=== PATIENT | male | born 1995 | race Caucasian/White ===

== ENCOUNTER 2021-03-27 16:15 | Inpatient (IN) | payer SELFPAY ==
[~2021-03-27] VITALS: Ht 180.3 cm; Wt 131.6 kg
[2021-03-27 16:48] LABS: BASOPHILS # (AUTO) 0.1 10^3/uL (0.0-0.1); BASOPHILS % (AUTO) 1 % (0-10); EOSINOPHILS # (AUTO) 0.1 10^3/uL (0.0-0.3); EOSINOPHILS % (AUTO) 1 % (0-10); HEMATOCRIT 43 % (40-54); LYMPHOCYTES # (AUTO) 1.1 10^3/uL (1.0-4.0); LYMPHOCYTES % (AUTO) 11 % (12-44); MEAN CORPUSCULAR HEMOGLOBIN 30 pg (25-34); MEAN CORPUSCULAR HGB CONC 35 g/dL (32-36); MEAN CORPUSCULAR VOLUME 86 fL (80-99); MONOCYTES % (AUTO) 9 % (0-12); NEUTROPHILS # (AUTO) 8.3 10^3/uL (1.8-7.8); NEUTROPHILS % (AUTO) 78 % (42-75); PLATELET COUNT 244 10^3/uL (130-400); WHITE BLOOD COUNT 10.6 10^3/uL (4.3-11.0)
[2021-03-27 17:00] LABS: CHLORIDE 109 MMOL/L (98-107); POTASSIUM 3.3 MMOL/L (3.6-5.0); SODIUM 145 MMOL/L (135-145)
[2021-03-27 17:01] LABS: INR 1.2 (0.8-1.4); PROTHROMBIN TIME PATIENT 15.4 SEC (12.2-14.7)
[2021-03-27 17:02] LABS: CALCIUM 8.9 MG/DL (8.5-10.1)
[2021-03-27 17:03] LABS: GLUCOSE 129 MG/DL (70-105); TOTAL PROTEIN 6.9 GM/DL (6.4-8.2)
[2021-03-27 17:04] LABS: CARBON DIOXIDE 23 MMOL/L (21-32)
[2021-03-27 17:05] LABS: BILIRUBIN,TOTAL 0.8 MG/DL (0.1-1.0)
[2021-03-27 17:07] LABS: ALKALINE PHOSPHATASE 59 U/L (40-136); CREATININE SERUM 0.88 MG/DL (0.60-1.30); GFR ESTIMATED 104
[2021-03-27 17:08] LABS: BUN/CREATININE RATIO 10
[2021-03-27 17:09] LABS: SALICYLATE < 5.0 MG/DL (5.0-20.0)
[2021-03-27 17:10] LABS: ALANINE AMINOTRANSFERASE 96 U/L (0-55); MAGNESIUM 1.8 MG/DL (1.6-2.4)
[2021-03-27 17:11] LABS: CREATINE KINASE 89 U/L (30-200)
[2021-03-27] MEDS ORDERED: NS IV 1000 ML 1,000 ML IV SCH (17:15)
[2021-03-27] MEDS ORDERED: ACETAMINOPHEN 650 MG SUPP (TYLENOL) PR ONE (17:15)
--- NOTE | 2021-03-27 17:23 | Diagnostic Imaging Report ---
INDICATION: Tachycardia. COMPARISON: None available. TECHNIQUE: Single frontal radiograph of the chest dated March 27, 2021. FINDINGS: The cardiac silhouette is within normal limits in size. No significant pulmonary vascular congestion. Mild linear opacities are noted within the right midlung. The left lung is clear. No large-volume pleural effusion. No pneumothorax. No acute osseous abnormality. IMPRESSION: Mild right midlung opacities which may relate to focal infiltrate versus atelectasis. Trace pleural fluid within the minor fissure would be an additional consideration. Dictated by: Dictated on workstation # [id number]
[2021-03-27 17:26] LABS: BILIRUBIN,URINE NEGATIVE (NEGATIVE); CLARITY,URINE CLEAR; COLOR,URINE YELLOW; GLUCOSE, URINE (UA) NEGATIVE (NEGATIVE); KETONES,URINE NEGATIVE (NEGATIVE); LEUKOCYTE ESTERASE ,URINE NEGATIVE (NEGATIVE); NITRITE,URINE NEGATIVE (NEGATIVE); PH,URINE 6.5 (5-9); PROTEIN,URINE NEGATIVE (NEGATIVE)
--- NOTE | 2021-03-27 17:29 | Diagnostic Imaging Report ---
PROCEDURE: CT head and CT cervical spine without contrast. TECHNIQUE: Multiple contiguous axial images were obtained through the brain and cervical spine without the use of intravenous contrast. Sagittal and coronal reformations through the cervical spine were then performed. Auto Exposure Controls were utilized during the CT exam to meet ALARA standards for radiation dose reduction. INDICATION: Trauma, patient found unresponsive. COMPARISON: 08/19/2016 FINDINGS: No intracranial hemorrhage. No intracranial mass, mass effect, midline shift, herniation, hydrocephalus, or extra-axial fluid collection. The orbits are unremarkable. Mild mucosal thickening and fluid within scattered ethmoidal air cells. Mucosal thickening within the right sphenoid sinus. Retention cysts and mucosal thickening within the bilateral maxillary sinuses. The calvarium is intact. Straightening of the normal cervical lordosis without significant anterolisthesis or retrolisthesis. Alignment of the atlantooccipital joint is well maintained. Vertebral body heights and disc spaces are well-maintained. No acute fracture or dislocation. No destructive osseous process. No high-grade osseous central canal or neural foraminal stenosis. No apical pneumothorax. Paraspinal soft tissues are unremarkable. IMPRESSION: No acute intracranial abnormality with mild paranasal sinus disease present. No acute osseous abnormality within the cervical spine. Straightening of the normal cervical lordosis, which may simply be positional, though can also relate to muscle spasm. Dictated by: Dictated on workstation # [id number]
[2021-03-27 17:31] LABS: ACETAMINOPHEN < 10 UG/ML (10-30)
[2021-03-27 17:43] LABS: AMPHETAMINE SCREEN, URINE NEGATIVE (NEGATIVE); BARBITURATE SCREEN URINE NEGATIVE (NEGATIVE); BENZODIAZEPINES SCREEN URINE NEGATIVE (NEGATIVE); CANNABINOID SCREEN, URINE NEGATIVE (NEGATIVE); COCAINE SCREEN URINE NEGATIVE (NEGATIVE); METHADONE STAT NEGATIVE (NEGATIVE); METHAMPHETAMINE SCREEN URINE S NEGATIVE (NEGATIVE); OPIATE SCREEN URINE NEGATIVE (NEGATIVE); OXYCODONE STAT NEGATIVE (NEGATIVE); PROPOXYPHENE STAT NEGATIVE (NEGATIVE); TRICYCLIC ANTIDEPRESSANTS SCRE POSITIVE (NEGATIVE)
[2021-03-27] MEDS ORDERED: SUCCINYLCHOLINE INJ 100 MG/5 ML SYR/VIAL INJ ONE (17:45)
[2021-03-27] MEDS ORDERED: PROPOFOL INJECTION 50 ML IV SCH (17:45)
[2021-03-27] MEDS ORDERED: cefTRIAXone 1,000 MG in WATER (STERILE) FOR INJECTION 10 ML IV ONE ×4 (17:45)
[2021-03-27] MEDS ORDERED: fentaNYL INJ 100 MCG/2 ML AMP IVP ONE (17:45)
[2021-03-27] MEDS ORDERED: ETOMIDATE IV SOLN 20 MG/10 ML VIAL IV ONE (17:45)
[2021-03-27 17:47] LABS: ABG BASE EXCESS -0.4 MMOL/L (-2.5-2.5); ABG OXYGEN SATURATION 96 % (94-100); ABG PCO2 41 MMHG (35-45); ABG PH 7.39 (7.37-7.43); ABG PO2 74 MMHG (79-93)
[2021-03-27 17:48] LABS: AMORPHOUS SEDIMENT,UR FEW AMOR URATES /LPF; BACTERIA,URINE TRACE /HPF; RBC,URINE RARE /HPF; WBC,URINE 0-2 /HPF
[2021-03-27 17:48] LABS: ALLENS TEST POSITIVE; PATIENT TEMP 37.6; VENTILATOR NO
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
[2021-03-27] MEDS ORDERED: proPOfol 200 MG/20 ML (DIPRIVAN) VIAL IV ONE (19:23)
[2021-03-27] MEDS ORDERED: NS IV 1000 ML 1,000 ML ONE (19:27)
[2021-03-27] MEDS ORDERED: NS 250 ML (IVPB) BAG IV ONE (19:30)
[2021-03-27] MEDS ORDERED: IOHEXOL 350 MG/ML 150 ML (OMNIPAQUE 350) VIAL IV ONE (19:30)
[2021-03-27] MEDS ORDERED: PROPOFOL DRIP (ICU) 100 ML IV ONE (19:30)
[2021-03-27] MEDS ORDERED: HOLD METFORMIN - RECEIVED CONTRAST 20 ML VIAL IV SCH (19:30)
--- NOTE | 2021-03-27 19:48 | Diagnostic Imaging Report ---
PROCEDURE: CT angiography of the head and CT angiography of the neck with and without contrast. TECHNIQUE: Contiguous noncontrast images were obtained from the skull base through the vertex. After intravenous contrast administration, helical CT angiography of the neck was performed. Source data was reformatted into 3D MIP projections. Delayed post contrast acquisition was also obtained. Auto Exposure Controls were utilized during the CT exam to meet ALARA standards for radiation dose reduction. INDICATION: Patient is unresponsive, found down COMPARISON: Imaging from the same date FINDINGS: No midline shift, herniation, hydrocephalus, or suspicious extra-axial fluid collection. Evaluation for intracranial hemorrhage is limited secondary to presence of intravenous contrast. The orbits are unremarkable. Fluid and mucosal thickening within scattered ethmoidal air cells and the sphenoid sinuses. Mucous retention cysts and mucosal thickening within the bilateral maxillary sinuses. The mastoid air cells and middle ear cavities are clear. The calvarium is intact. Parapharyngeal fat is symmetric and well-maintained. Mildly enlarged bilateral cervical lymph nodes. The salivary glands are unremarkable. Muscles of mastication are unremarkable. Epiglottis and aryepiglottic folds are unremarkable. The thyroid gland is unremarkable. The airway is patent. No focal fluid collection. No apical pneumothorax. No acute osseous abnormality. A three-vessel aortic arch is present. Aberrant right subclavian artery is incidentally noted. The large arterial structures of the head and neck are otherwise unremarkable without evidence of occlusion, hemodynamically significant stenosis, dissection, aneurysm, or pseudoaneurysm. IMPRESSION: No acute intracranial abnormality. Large arterial structures of the head and neck are unremarkable. Mild bilateral cervical adenopathy, of uncertain etiology or significance. Mild paranasal sinus disease. Aberrant right subclavian artery. Dictated by: Dictated on workstation # [id number]
--- NOTE | 2021-03-27 19:55 | Diagnostic Imaging Report ---
INDICATION: Patient unresponsive, found down COMPARISON: Imaging from the same date TECHNIQUE: Postcontrast CT brain perfusion was performed. Postprocessing was performed using rapid stroke software. FINDINGS: The volume of parenchyma showing cerebral blood flow of less than 30% was 0 mL. The volume of parenchyma showing a T-Max greater than 6 seconds is 0 mL. Therefore, there is no mismatch volume. Normal venous outflow and arterial inflow is noted. IMPRESSION: No evidence of acute infarction or penumbra. Dictated by: Dictated on workstation # [id number]
[2021-03-27 20:04] VITALS: BP 117/88
--- NOTE | 2021-03-27 20:08 | Diagnostic Imaging Report ---
INDICATION: Tube positioning, endotracheal tube, intubation. COMPARISON: 03/27/2021. TECHNIQUE: Single radiograph of the chest dated March 27, 2021 at 1953 hours. FINDINGS: Interval placement of an endotracheal tube with the distal tip overlying the tracheal air column at the level of the clavicular heads. The cardiac silhouette is stable. No significant pulmonary vascular congestion. Minimal linear opacities within the right midlung are again identified. Low lung volumes. No large-volume pleural effusion. No pneumothorax. No acute osseous abnormality. IMPRESSION: 1. Interval placement of an endotracheal tube with the distal tip overlying the tracheal air column at the level of the clavicular heads. 2. Persistent and stable right midlung opacities without adverse change. Dictated by: Dictated on workstation # [id number]
--- NOTE | 2021-03-27 20:23 | Anesthesia-Procedure Note ---
Procedures/Interventions Procedure Start/Stop/Diagnosis Date of Procedure: Mar 27, 2021 Start Time: 19:30 Stop Time: 20:20 Intubation RSI: Yes 100% pre-Ox, [id number]: Yes Intubation Method: orotracheal MAC (size used 1-4): 2 Videoscope used: No Grade View: 2 Medications: Propofol (200), Succinylcholine (100) Mask Ventilation: positive Positive End Tide CO2: Yes Breath Sounds after Intubation: bilateral-equal ETT Securred @ (cm): 23 Intubated with ease: Yes Intubation Complications: no complications Post Intubation Xray-done: Yes Lumbar Puncture Discussed Risk,Benefits: Yes Patient Consents: Yes Position: Lying, L3-4, Left Sterile Technique: Yes Opening Pressure: 33 Fluid Color: clear Spinal Needle Used: 22g Gwendolyn 3 1/2 inch VIVIEN SINHA CRNA Mar 27, 2021 20:23
[2021-03-27 21:00] VITALS: BP 146/78
[2021-03-27] MEDS ORDERED: LACTATED RINGERS 1,000 ML IV ONE (21:04)
[2021-03-27] MEDS ORDERED: cefTRIAXone 2,000 MG VIAL ONE (21:06)
[2021-03-27] MEDS ORDERED: WATER (STERILE) FOR INJECTION 20 ML ONE (21:07)
[2021-03-27] MEDS ORDERED: ACETAMINOPHEN 650 MG SUPP (TYLENOL) PR PRN (21:15)
[2021-03-27 21:22] LABS: CSF GLUCOSE 75 MG/DL (50-80)
[2021-03-27] MEDS: cefTRIAXone 2,000 MG/SWFI 20 ML IV PUSH IV SCH ×2 (21:22)
[2021-03-27] MEDS: LACTATED RINGERS 1,000 ML IV SCH (21:22)
[2021-03-27 21:28] LABS: CSF TOTAL PROTEIN 27 MG/DL (15-40)
--- NOTE | 2021-03-27 21:37 | Progress Note ---
Standard Progress Note Progress Notes/Assess & Plan Date Seen by a Provider: Mar 27, 2021 Time Seen by a Provider: 21:34 Progress/Assessment & Plan patient found in van of which he was living unresponsive, brought into ED, intubated, unclear etiology, was febrile, wbc appears normal had pus coming out of ear. Patient was intubated, had LP and strarted on ceftriaxone, wbc normal on labs, paitent drug tox negative except tricyclic antidepressants, patient had high opening pressures Heart rate was 149 on arrival but currently in icu it is 101, rr 16, sedated, sats 100 percent, and bp sbp 140 appears stable patient on vent Ct head appears normal along with c spine appears am labs ordered, continue abx, continue ivf continue full vent support awaiting cultures Focused Exam Lactate Level 03/27/21 16:35: Lactic Acid Level 1.59 DAGO SANTO MD Mar 27, 2021 21:37
--- NOTE | 2021-03-27 21:51 | Tele-ICU Consult ---
Progress Note Laboratory Tests 03/27/21 16:35 Laboratory Tests Vital Signs Date Time Temp Pulse Resp B/P (MAP) Pulse Ox O2 Delivery O2 Flow Rate FiO2 03/27/21 16:20 38.0 149 96 Room Air 03/27/21 20:04 16 40 03/27/21 21:15 35.00 Laboratory Tests Vital Sign - Last 12Hours Date Time Temp Pulse Resp B/P (MAP) Pulse Ox O2 Delivery O2 Flow Rate FiO2 03/27/21 21:15 35.2 107 16 146/78 (100) 98 Mechanical Ventilator 35.00 03/27/21 21:00 35 Laboratory Tests Test 03/27/21 16:29 03/27/21 16:35 03/27/21 17:15 03/27/21 17:30 Range/Units Influenza Type A (RT-PCR) Not Detected Not Detecte Influenza Type B (RT-PCR) Not Detected Not Detecte SARS-CoV-2 RNA (RT-PCR) Not Detected Not Detecte White Blood Count 10.6 4.3-11.0 10^3/uL Red Blood Count 5.05 4.30-5.52 10^6/uL Hemoglobin 15.0 13.3-17.7 g/dL Hematocrit 43 40-54 % Mean Corpuscular Volume 86 80-99 fL Mean Corpuscular Hemoglobin 30 25-34 pg Mean Corpuscular Hemoglobin Concent 35 32-36 g/dL Red Cell Distribution Width 12.1 10.0-14.5 % Platelet Count 244 130-400 10^3/uL Mean Platelet Volume 10.0 9.0-12.2 fL Immature Granulocyte % (Auto) 0 % Neutrophils (%) (Auto) 78 H 42-75 % Lymphocytes (%) (Auto) 11 L 12-44 % Monocytes (%) (Auto) 9 0-12 % Eosinophils (%) (Auto) 1 0-10 % Basophils (%) (Auto) 1 0-10 % Neutrophils # (Auto) 8.3 H 1.8-7.8 10^3/uL Lymphocytes # (Auto) 1.1 1.0-4.0 10^3/uL Monocytes # (Auto) 1.0 0.0-1.0 10^3/uL Eosinophils # (Auto) 0.1 0.0-0.3 10^3/uL Basophils # (Auto) 0.1 0.0-0.1 10^3/uL Immature Granulocyte # (Auto) 0.0 0.0-0.1 10^3/uL Prothrombin Time 15.4 H 12.2-14.7 SEC INR Comment 1.2 0.8-1.4 Activated Partial Thromboplast Time 25 24-35 SEC Sodium Level 145 135-145 MMOL/L Potassium Level 3.3 L 3.6-5.0 MMOL/L Chloride Level 109 H 98-107 MMOL/L Carbon Dioxide Level 23 21-32 MMOL/L Anion Gap 13 5-14 MMOL/L Blood Urea Nitrogen 9 7-18 MG/DL Creatinine 0.88 0.60-1.30 MG/DL Estimat Glomerular Filtration Rate 104 BUN/Creatinine Ratio 10 Glucose Level 129 H 70-105 MG/DL Lactic Acid Level 1.59 0.50-2.00 MMOL/L Calcium Level 8.9 8.5-10.1 MG/DL Corrected Calcium 8.9 8.5-10.1 MG/DL Magnesium Level 1.8 1.6-2.4 MG/DL Total Bilirubin 0.8 0.1-1.0 MG/DL Aspartate Amino Transf (AST/SGOT) 49 H 5-34 U/L Alanine Aminotransferase (ALT/SGPT) 96 H 0-55 U/L Alkaline Phosphatase 59 40-136 U/L Total Creatine Kinase 89 30-200 U/L C-Reactive Protein High Sensitivity 1.54 H 0.00-0.50 MG/DL Total Protein 6.9 6.4-8.2 GM/DL Albumin 4.0 3.2-4.5 GM/DL Procalcitonin 0.06 <0.10 NG/ML TSH [place] Testing 0.80 0.35-4.94 UIU/ML Salicylates Level < 5.0 L 5.0-20.0 MG/DL Acetaminophen Level < 10 L 10-30 UG/ML Serum Alcohol < 10 <10 MG/DL Urine Color YELLOW Urine Clarity CLEAR Urine pH 6.5 5-9 Urine Specific [place] 1.020 1.016-1.022 Urine Protein NEGATIVE NEGATIVE Urine Glucose (UA) NEGATIVE NEGATIVE Urine Ketones NEGATIVE NEGATIVE Urine Nitrite NEGATIVE NEGATIVE Urine Bilirubin NEGATIVE NEGATIVE Urine Urobilinogen 0.2 < = 1.0 MG/DL Urine Leukocyte Esterase NEGATIVE NEGATIVE Urine RBC (Auto) NEGATIVE NEGATIVE Urine RBC RARE /HPF Urine WBC 0-2 /HPF Urine Crystals PRESENT H /LPF Urine Amorphous Sediment FEW ARTURO URATES H /LPF Urine Bacteria TRACE /HPF Urine Casts NONE /LPF Urine Mucus NEGATIVE /LPF Urine Culture Indicated NO Urine Opiates Screen NEGATIVE NEGATIVE Urine Oxycodone Screen NEGATIVE NEGATIVE Urine Methadone Screen NEGATIVE NEGATIVE Urine Propoxyphene Screen NEGATIVE NEGATIVE Urine Barbiturates Screen NEGATIVE NEGATIVE Ur Tricyclic Antidepressants Screen POSITIVE H NEGATIVE Urine Phencyclidine Screen NEGATIVE NEGATIVE Urine Amphetamines Screen NEGATIVE NEGATIVE Urine Methamphetamines Screen NEGATIVE NEGATIVE Urine Benzodiazepines Screen NEGATIVE NEGATIVE Urine Cocaine Screen NEGATIVE NEGATIVE Urine Cannabinoids Screen NEGATIVE NEGATIVE Blood Gas Puncture Site RIGHT RADIAL Blood Gas Patient Temperature 37.6 Arterial Blood pH 7.39 7.37-7.43 Arterial Blood Partial Pressure CO2 41 35-45 MMHG Arterial Blood Partial Pressure O2 74 L 79-93 MMHG Arterial Blood HCO3 24 23-27 MMOL/L Arterial Blood Total CO2 25.0 21.0-31.0 MMOL/L Arterial Blood Oxygen Saturation 96 94-100 % Arterial Blood Base Excess -0.4 -2.5-2.5 MMOL/L Eloy Test POSITIVE Blood Gas Ventilator Setting NO Blood Gas Inspired Oxygen N/A Test 03/27/21 17:46 03/27/21 18:35 03/27/21 20:10 Range/Units Ammonia 35 H 11-32 UMOL/L CSF Glucose 75 50-80 MG/DL CSF Total Protein 27 15-40 MG/DL Allergies Coded Allergies No Known Drug Allergies (Unverified03/27/21) 03/27/21 16:35: Salicylates Level < 5.0, Acetaminophen Level < 10, Serum Alcohol < 10 03/27/21 17:15: Urine Opiates Screen NEGATIVE, Urine Oxycodone Screen NEGATIVE, Urine Methadone Screen NEGATIVE, Urine Propoxyphene Screen NEGATIVE, Urine Barbiturates Screen NEGATIVE, Ur Tricyclic Antidepressants Screen POSITIVE, Urine Phencyclidine Screen NEGATIVE, Urine Amphetamines Screen NEGATIVE, Urine Methamphetamines Screen NEGATIVE, Urine Benzodiazepines Screen NEGATIVE, Urine Cocaine Screen NEGATIVE, Urine Cannabinoids Screen NEGATIVE Laboratory Tests Test 03/27/21 16:35 Serum Alcohol < 10 MG/DL (<10) Test 03/27/21 17:30 Blood Gas Puncture Site RIGHT RADIAL Blood Gas Patient Temperature 37.6 Arterial Blood pH 7.39 Arterial Blood Partial Pressure CO2 41 MMHG Arterial Blood Partial Pressure O2 74 MMHG Arterial Blood HCO3 24 MMOL/L Arterial Blood Total CO2 25.0 MMOL/L Arterial Blood Oxygen Saturation 96 % Arterial Blood Base Excess -0.4 MMOL/L Eloy Test POSITIVE Blood Gas Ventilator Setting NO Blood Gas Inspired Oxygen N/A Laboratory Tests 03/27/21 16:35 HPI: patient found in van of which he was living unresponsive, brought into ED, intubated, unclear etiology, was febrile, wbc appears normal had pus coming out of ear. Patient was intubated, had LP and strarted on ceftriaxone, wbc normal on labs, paitent drug tox negative except tricyclic antidepressants, patient had high opening pressures A/P appears am labs ordered, continue abx awaiting cultures Focused Exam Possible Source: Meningitis Lactate Level 03/27/21 16:35: Lactic Acid Level 1.59 Height, Weight, BMI Height: '" Weight: lbs. oz. kg; 40.29 BMI Method: DAGO SANTO MD Mar 27, 2021 21:51
[2021-03-27 22:00] LABS: APPEARANCE,CSF CLEAR
[2021-03-27 22:01] LABS: COLOR,CSF COLORLESS; WHITE BLOOD CELL,CSF 0 CELLS (0-5)
[2021-03-27 22:04] LABS: RED BLOOD CELL,CSF 2.2 CELLS (0-0)
[2021-03-27 22:05] LABS: CSF TUBE NUMBER 4
[2021-03-27] MEDS: ENOXAPARIN 40 MG/0.4 ML (LOVENOX) SYR SC SCH (22:14)
[2021-03-28 02:42] VITALS: BP 127/73
[2021-03-28] MEDS: LACTATED RINGERS 1,000 ML IV SCH ×2 (03:37→09:38)
[2021-03-28 03:39] LABS: BASOPHILS # (AUTO) 0.1 10^3/uL (0.0-0.1); BASOPHILS % (AUTO) 1 % (0-10); EOSINOPHILS # (AUTO) 0.3 10^3/uL (0.0-0.3); EOSINOPHILS % (AUTO) 3 % (0-10); HEMATOCRIT 42 % (40-54); LYMPHOCYTES # (AUTO) 1.8 10^3/uL (1.0-4.0); LYMPHOCYTES % (AUTO) 18 % (12-44); MEAN CORPUSCULAR HEMOGLOBIN 30 pg (25-34); MEAN CORPUSCULAR HGB CONC 34 g/dL (32-36); MEAN CORPUSCULAR VOLUME 89 fL (80-99); MEAN PLATELET VOLUME 10.2 fL (9.0-12.2); MONOCYTES % (AUTO) 10 % (0-12); NEUTROPHILS # (AUTO) 6.7 10^3/uL (1.8-7.8); NEUTROPHILS % (AUTO) 68 % (42-75); PLATELET COUNT 221 10^3/uL (130-400); WHITE BLOOD COUNT 9.8 10^3/uL (4.3-11.0)
[2021-03-28 03:43] LABS: ABG BASE EXCESS -2.2 MMOL/L (-2.5-2.5); ABG OXYGEN SATURATION 97 % (94-100); ABG PCO2 43 MMHG (35-45); ABG PO2 88 MMHG (79-93); ABG TCO2 24.2 MMOL/L (21.0-31.0)
[2021-03-28 03:44] LABS: ALLENS TEST YES-POS; INSPIRED O2 25%; PATIENT TEMP 36.4; VENTILATOR YES
[2021-03-28 03:45] LABS: ABG PH 7.34 (7.37-7.43)
[2021-03-28 03:49] LABS: POTASSIUM 3.5 MMOL/L (3.6-5.0)
[2021-03-28 03:50] LABS: CALCIUM 8.4 MG/DL (8.5-10.1)
[2021-03-28 03:54] LABS: PHOSPHORUS 2.4 MG/DL (2.3-4.7)
[2021-03-28 03:55] LABS: CREATININE SERUM 0.86 MG/DL (0.60-1.30)
[2021-03-28 03:57] LABS: MAGNESIUM 1.9 MG/DL (1.6-2.4)
[2021-03-28] MEDS ORDERED: KCL 20 MEQ TAB (K-DUR) PO SCH (06:00)
[2021-03-28] MEDS ORDERED: POTASSIUM CL 10MEQ/50ML IVPB 50 ML IV SCH (06:00)
[2021-03-28] MEDS ORDERED: MAGNESIUM 1 GM/100 ML IVPB 100 ML IV SCH (06:00)
--- NOTE | 2021-03-28 06:12 | Diagnostic Imaging Report ---
EXAMINATION: Chest 1 view HISTORY: Ventilator COMPARISON: 03/27/2021 FINDINGS: Endotracheal tube tip terminates 5 cm above the lucía. The gastric tube terminates at the low stomach. The lung volumes are small. There is mild left basilar atelectasis. No pleural effusion or pneumothorax. Heart size is normal. IMPRESSION: 1. Small lung volumes with mild basilar atelectasis. Dictated by: Dictated on workstation # [id number]
[2021-03-28] MEDS: POTASSIUM CL 10MEQ/50ML IVPB 50 ML IV SCH ×2 (06:16→06:56)
[2021-03-28 07:02] VITALS: BP 108/55
--- NOTE | 2021-03-28 08:46 | History & Physical-Hospitalist ---
History of Present Illness HPI/Chief Complaint Pt is a 25yoCM who presented to the ER due to AMS. He is currently intubated and sedated and no ROS is possible. No family at bedside. He apparently was found unresponsive in his care which he has been living in for the past few months. He was brought in for evaluation and was found to be febrile as well. He went immed iately to CT which was negative for ICH. He was given Narcan 2mg by EMS with no improvement. Due to inability to protect airway he was intubated in the ER. He underwent CTA as well which was negative for any large vessel occlusion. There was concern for meningitis as well given fever, AMS and exam which revealed purulent drainage from ear. Anesthesia performed an LP which was not indicative for bacterial meningitis. He Exam Limitations: clinical condition (n) Date Seen 03/28/21 Time Seen by a Provider: 08:40 Attending Physician Andrew Baptiste MD PCP Referring Physician Date of Admission Mar 27, 2021 at 20:09 Home Medications & Allergies Home Medications Reviewed patient Home Medication Reconciliation performed by pharmacy medication reconciliations battery technician and/or nursing. Patients Allergies have been reviewed. Allergies Allergies Coded Allergies No Known Drug Allergies (Unverified03/27/21) Past Yprsmdz-Xiuvbx-Mgavgx Hx Patient Social History Living Status: lives in car Smoking Status: Unknown if Ever Smoked Use of E-Cig and/or Vaping dev: Unable to obtain Use of E-Cig and/or Vaping Ja: Unknown if Ever Used Alcohol Use?: Unable to obtain Current Status Advance Directives: Unable to obtain Communicates: Unable To Communicate Primary Language: Andorran Preferred Spoken Language: Andorran Is interpretation needed?: Unable to obtain Review of Systems ROS-Unable to Obtain: on vent, sedated Constitutional: see HPI Physical Exam Physical Exam Vital Signs Vital Signs - First Documented 03/27/21 03/27/21 03/27/21 16:20 20:04 21:15 Temp 38.0 Pulse 149 Resp 16 B/P (MAP) 146/78 (100) Pulse Ox 96 O2 Delivery Room Air O2 Flow Rate 35.00 FiO2 40 Capillary Refill : Less Than 3 Seconds Height, Weight, BMI Height: '" Weight: lbs. oz. kg; 40.29 BMI Method: General Appearance: Obese, Other (intubated and sedated) HEENT: PERRL/EOMI, Moist Mucous Membranes, Other (ETT in place, some dried crusting on left ear) Neck: Normal Inspection, Supple Respiratory: Lungs Clear, Other (on vent) Cardiovascular: Regular Rate, Rhythm, No Murmur Gastrointestinal: Normal Bowel Sounds, Non Tender, Soft Genital/Rectal: Other (ventura in place) Extremity: Normal Capillary Refill, No Calf Tenderness, No Pedal Edema Neurologic/Psychiatric: Other (sedated, appears comfortable) Skin: Normal Color, Warm/Dry Results Results/Procedures Labs Laboratory Tests 03/27/21 16:35 03/28/21 03:12 Patient resulted labs reviewed. Imaging: Reviewed Imaging Report Imaging [facility], [place] NAME: RADHA WILHELM [facility] REC#: [id number] PT STATUS: ADM IN : 1995 PHYSICIAN: ALY MESA MD ADMIT DATE: 03/27/21/ICU Signed Date of Exam:03/27/21 CHEST 1 VIEW, AP/PA ONLY INDICATION: Tachycardia. COMPARISON: None available. TECHNIQUE: Single frontal radiograph of the chest dated March 27, 2021. FINDINGS: The cardiac silhouette is within normal limits in size. No significant pulmonary vascular congestion. Mild linear opacities are noted within the right midlung. The left lung is clear. No large-volume pleural effusion. No pneumothorax. No acute osseous abnormality. IMPRESSION: Mild right midlung opacities which may relate to focal infiltrate versus atelectasis. Trace pleural fluid within the minor fissure would be an additional consideration. Dictated by: Dictated on workstation # [id number] Dict: 03/27/218 Trans: 03/27/212233 [id number] [id number] Interpreted by: CHAPITO DE LA CRUZ MD Electronically signed by: CHAPITO DE LA CRUZ MD 03/27/212233 [facility] [place] [place] NAME: WILHELMRADHA [facility] REC#: [id number] PT STATUS: ADM IN : 1995 PHYSICIAN: ALY MESA MD ADMIT DATE: 03/27/21/ICU Signed Date of Exam:03/27/21 CT HEAD/CERVICAL SPINE WO PROCEDURE: CT head and CT cervical spine without contrast. TECHNIQUE: Multiple contiguous axial images were obtained through the brain and cervical spine without the use of intravenous contrast. Sagittal and coronal reformations through the cervical spine were then performed. Auto Exposure Controls were utilized during the CT exam to meet ALARA standards for radiation dose reduction. INDICATION: Trauma, patient found unresponsive. COMPARISON: 08/19/2016 FINDINGS: No intracranial hemorrhage. No intracranial mass, mass effect, midline shift, herniation, hydrocephalus, or extra-axial fluid collection. The orbits are unremarkable. Mild mucosal thickening and fluid within scattered ethmoidal air cells. Mucosal thickening within the right sphenoid sinus. Retention cysts and mucosal thickening within the bilateral maxillary sinuses. The calvarium is intact. Straightening of the normal cervical lordosis without significant anterolisthesis or retrolisthesis. Alignment of the atlantooccipital joint is well maintained. Vertebral body heights and disc spaces are well-maintained. No acute fracture or dislocation. No destructive osseous process. No high-grade osseous central canal or neural foraminal stenosis. No apical pneumothorax. Paraspinal soft tissues are unremarkable. IMPRESSION: No acute intracranial abnormality with mild paranasal sinus disease present. No acute osseous abnormality within the cervical spine. Straightening of the normal cervical lordosis, which may simply be positional, though can also relate to muscle spasm. Dictated by: Dictated on workstation # [id number] Dict: 03/27/21 1714 Trans: 03/27/212232 [facility] [id number] Interpreted by: CHAPITO DE LA CRZU MD Electronically signed by: CHAPITO DE LA CRUZ MD 03/27/212232 [facility] [place] NAME: RADHA WILHELM [facility] REC#: [id number] PT STATUS: ADM IN : 1995 PHYSICIAN: ALY MESA MD ADMIT DATE: 03/27/21/ICU Signed Date of Exam:03/27/21 CT ANGIO HEAD/NECK PROCEDURE: CT angiography of the head and CT angiography of the neck with and without contrast. TECHNIQUE: Contiguous noncontrast images were obtained from the skull base through the vertex. After intravenous contrast administration, helical CT angiography of the neck was performed. Source data was reformatted into 3D MIP projections. Delayed post contrast acquisition was also obtained. Auto Exposure Controls were utilized during the CT exam to meet ALARA standards for radiation dose reduction. INDICATION: Patient is unresponsive, found down COMPARISON: Imaging from the same date FINDINGS: No midline shift, herniation, hydrocephalus, or suspicious extra-axial fluid collection. Evaluation for intracranial hemorrhage is limited secondary to presence of intravenous contrast. The orbits are unremarkable. Fluid and mucosal thickening within scattered ethmoidal air cells and the sphenoid sinuses. Mucous retention cysts and mucosal thickening within the bilateral maxillary sinuses. The mastoid air cells and middle ear cavities are clear. The calvarium is intact. Parapharyngeal fat is symmetric and well-maintained. Mildly enlarged bilateral cervical lymph nodes. The salivary glands are unremarkable. Muscles of mastication are unremarkable. Epiglottis and aryepiglottic folds are unremarkable. The thyroid gland is unremarkable. The airway is patent. No focal fluid collection. No apical pneumothorax. No acute osseous abnormality. A three-vessel aortic arch is present. Aberrant right subclavian artery is incidentally noted. The large arterial structures of the head and neck are otherwise unremarkable without evidence of occlusion, hemodynamically significant stenosis, dissection, aneurysm, or pseudoaneurysm. IMPRESSION: No acute intracranial abnormality. Large arterial structures of the head and neck are unremarkable. Mild bilateral cervical adenopathy, of uncertain etiology or significance. Mild paranasal sinus disease. Aberrant right subclavian artery. Dictated by: Dictated on workstation # [id number] Dict: 03/27/211934 Trans: 03/27/212228 [facility] [id number] Interpreted by: CHAPITO DEL A CRUZ MD Electronically signed by: CHAPITO DE LA CRUZ MD 03/27/212228 [facility] [place] NAME: RADHA WILHELM [facility] REC#: [id number] PT STATUS: ADM IN : 1995 PHYSICIAN: ALY MESA MD ADMIT DATE: 03/27/21/ICU Signed Date of Exam:03/27/21 CT HEAD PERFUSION W/ CONTRAST INDICATION: Patient unresponsive, found down COMPARISON: Imaging from the same date TECHNIQUE: Postcontrast CT brain perfusion was performed. Postprocessing was performed using rapid stroke software. FINDINGS: The volume of parenchyma showing cerebral blood flow of less than 30% was 0 mL. The volume of parenchyma showing a T-Max greater than 6 seconds is 0 mL. Therefore, there is no mismatch volume. Normal venous outflow and arterial inflow is noted. IMPRESSION: No evidence of acute infarction or penumbra. Dictated by: Dictated on workstation # [id number] Dict: 03/27/211947 Trans: 03/27/212227 [facility] [id number] Interpreted by: CHAPITO DE LA CRUZ MD Electronically signed by: CHAPITO DE LA CRUZ MD 03/27/212227 Assessment/Plan Admission Diagnosis Acute respiratory failure due to encephalopathy Admission Status: Inpatient Order (span 2 midnights) Reason for Inpatient Admission: see below Assessment and Plan Acute respiratory failure due to encephalopathy Fever, rule out sepsis Heat exposure GCS 6 on arrival, intubated in the ER TeleICU consulted for vent management, appreciate recs bacterial meningitis less likely per cell counts but keep in precautions until cultures back Rocephin and will add acyclovir CSF cultures and PCRs pending Discussed with Dr Gomez, hopeful for weaning trial today DVT ppx: Lovenox Gi ppx: Protonix ANDREW BAPTISTE MD Mar 28, 2021 08:46
[2021-03-28] MEDS ORDERED: FAMOTIDINE 20MG/2ML IV (PEPCID) IVP SCH (09:00)
[2021-03-28] MEDS ORDERED: PANTOPRAZOLE 40 MG (PROTONIX) VIAL IV SCH (09:00)
[2021-03-28] MEDS: ENOXAPARIN 40 MG/0.4 ML (LOVENOX) SYR SC SCH (09:26)
[2021-03-28] MEDS: cefTRIAXone 2,000 MG/SWFI 20 ML IV PUSH IV SCH ×2 (09:26)
[2021-03-28 10:46] VITALS: BP 107/56
--- NOTE | 2021-03-28 11:11 | Tele-ICU Progress Note ---
Subjective Date Seen by a Provider: Mar 28, 2021 Time Seen by a Provider: 10:30 Subjective/Events-last exam This virtual visit was conducted using real time audio/video. Thank you for asking us to see this patient for respiratory insufficiency and distress requiring intubation most likely due to an OD.. HPC: Recent events: None overnight. Waking up and following commands when off Propofol. PMH: ?Dep. SH: smoking history unknown FH: Non-contributory ROS: limited by patient's clinical condition. PE: VSS HR 66 NSR BP 106/60 RR 16 O2 99% sat on 25%/+5. HEENT: No obvious masses, adenopathy or JVD. Chest: clear to auscultation. CV: RRR S1 S2 No murmur or added sounds. Abd: Non-tender. Bowel sounds . : Unremarkable. MANAGER ANALYSIS. waking up, grossly intact. No obvious focal findings. Extremities: No oedema. Capillary refill < 3 seconds. Skin: unremarkable. Results: Elevated Na 146. . Decreased K 3.5 . A/P: Respiratory: should have weaning trial later when RT available. Available chart/ vitals / labs / images reviewed. Video assessment done using teleICU camera, rest of exam as per RN. Respiratory: Weaning trial. Critical Care: critically ill patient. Discussed with RN Tonya and Dr. Baptiste. Asked RN to reach out to eICU if any questions or concerns later. Time spent with patient/coordination of care with other health professionals (mins): 15. Sepsis Event Evaluation Height, Weight, BMI Height: '" Weight: lbs. oz. kg; 40.29 BMI Method: Focused Exam Lactate Level 03/27/21 16:35: Lactic Acid Level 1.59 Exam Exam Patient acknowledged, consented, and participated in this virtual visit which was conducted using real time audio/video Vital Signs Date Time Temp Pulse Resp B/P (MAP) Pulse Ox O2 Delivery O2 Flow Rate FiO2 03/28/21 11:00 68 16 106/55 (72) 98 Mechanical Ventilator 25.00 03/28/21 10:46 72 16 100 21 03/28/21 10:00 80 16 111/55 (73) 100 Mechanical Ventilator 25.00 03/28/21 09:00 36.1 78 16 112/60 (77) 100 Mechanical Ventilator 25.00 03/28/21 08:15 36.3 03/28/21 08:03 100 Mechanical Ventilator 25 03/28/21 08:00 36.1 82 16 133/77 (95) 100 Mechanical Ventilator 25.00 03/28/21 07:40 88 124/67 03/28/21 07:02 79 16 100 21 03/28/21 07:00 79 03/28/21 07:00 36.1 78 16 108/55 (82) 100 Mechanical Ventilator 25.00 03/28/21 06:00 79 16 112/58 (76) 100 Mechanical Ventilator 25.00 03/28/21 05:00 85 16 116/68 (84) 100 Mechanical Ventilator 25.00 03/28/21 04:20 128/72 03/28/21 04:00 100 Mechanical Ventilator 25 03/28/21 04:00 95 16 125/67 (86) 100 Mechanical Ventilator 25.00 03/28/21 03:29 36.4 100 Mechanical Ventilator 25.00 03/28/21 03:00 86 16 137/85 (102) 100 Mechanical Ventilator 30.00 03/28/21 02:42 85 16 100 30 03/28/21 02:00 86 16 116/73 (87) 100 Mechanical Ventilator 30.00 03/28/21 01:19 128/77 03/28/21 01:08 90 03/28/21 01:00 88 17 125/76 (92) 100 Mechanical Ventilator 30.00 03/28/21 00:45 36.1 100 Mechanical Ventilator 30.00 03/28/21 00:00 100 Mechanical Ventilator 35 03/28/21 00:00 82 16 126/79 (95) 100 Mechanical Ventilator 35.00 03/27/21 23:00 85 16 125/77 (93) 100 Mechanical Ventilator 35.00 03/27/21 22:11 129/78 03/27/21 22:00 91 16 129/78 (95) 100 Mechanical Ventilator 35.00 03/27/21 21:45 93 16 136/85 (102) 100 Mechanical Ventilator 35.00 03/27/21 21:30 101 16 143/84 (103) 100 Mechanical Ventilator 35.00 03/27/21 21:30 36.1 03/27/21 21:15 35.2 107 16 146/78 (100) 98 Mechanical Ventilator 35.00 03/27/21 21:05 120 03/27/21 21:00 100 Mechanical Ventilator 40 03/27/21 21:00 122 16 98 35 03/27/21 20:04 121 16 97 40 03/27/21 17:49 37.5 03/27/21 16:20 38.0 149 96 Room Air I & O 03/28/21 07:00 Intake Total 2300 ml Output Total 1600 ml Balance 700 ml Height & Weight Height: '" Weight: lbs. oz. kg; 40.29 BMI Method: General Appearance: Obese, Other (intubated and sedated) HEENT: PERRL/EOMI, Moist Mucous Membranes, Other (ETT in place, some dried crusting on left ear) Neck: Normal Inspection, Supple Respiratory: Lungs Clear, Other (on vent) Cardiovascular: Regular Rate, Rhythm, No Murmur Capillary Refill: Less Than 3 Seconds Extremity: Normal Capillary Refill, No Calf Tenderness, No Pedal Edema Neurologic/Psychiatric: Other (sedated, appears comfortable) Skin: Normal Color, Warm/Dry Results Lab Laboratory Tests 03/27/21 16:35 03/28/21 03:12 Assessment/Plan Assessment/Plan see free text Critical Care: Ventilator Management Time spent on discussion(mins): 0 LY SMALLS MD Mar 28, 2021 11:11
[2021-03-28] MEDS: ACYCLOVIR INJECTION 800 MG in NS (IVPB) 250 ML IV SCH ×2 (11:14→16:54)
[2021-03-28 11:48] VITALS: BP 122/67
[2021-03-28] MEDS ORDERED: fentaNYL INJ 100 MCG/2 ML AMP IV ONE (12:08)
[2021-03-28] MEDS ORDERED: ETOMIDATE IV SOLN 20 MG/10 ML VIAL IV ONE (12:08)
[2021-03-28] MEDS ORDERED: ROCURONIUM 10 MG/ML 5 ML SYRINGE IV ONE (12:08)
[2021-03-28] MEDS ORDERED: SUCCINYLCHOLINE INJ 100 MG/5 ML SYR/VIAL INJ ONE (12:08)
[2021-03-28 13:14] LABS: ABG BASE EXCESS -0.6 MMOL/L (-2.5-2.5); ABG OXYGEN SATURATION 94 % (94-100); ABG PCO2 38 MMHG (35-45); ABG PO2 64 MMHG (79-93); ABG TCO2 24.9 MMOL/L (21.0-31.0)
[2021-03-28 13:15] LABS: INSPIRED O2 25%; VENTILATOR YES
--- NOTE | 2021-03-31 23:24 | Physician Query Clarification ---
PQ-Uncertain Diagnosis Admission/Discharge Admission Date: Mar 27, 2021 at 20:09 Discharge Date: Mar 28, 2021 at 20:25 ANDREW Cota MD The medical record reflects the following clinical scenario: History/Risk Factors:25 y/o male patient presented to ER due to altered mental status, unresponsive, intubated in due to inability protect airway and done lumbar puncture to evaluate meningitis. Hand P, 03/27: Acute respiratory failure due to encephalopathy, fever rule out sepsis, heat exposure. Clinical Findings: Lumbar puncture done not indicating meningitis, WBC-10.6, PH- 7.39. Treatment: On mechanical ventilation, left AMA. Question: Is sepsis a clinically valid diagnosis? Sepsis was documented in the 03/27 with no further documentation in the medical record. Please document a response in Progress Note or Discharge Summary. 1. Yes, clinically valid, condition resolved. 2. No, condition ruled out. 3. Other, with explanation of clinical findings. 4. Undetermined, no explanation for clinical findings. PHYSICIAN RESPONSE Diagnosis clinically valid: No, conditon ruled out Please remember a lack of response to the above will prompt a phone page by [facility]/Coding staff. In responding to this query, please exercise your independent professional judgment. The purpose of this communication is to more accurately reflect the complexity of your patients condition. The fact that a question is asked does not imply that any particular answer is desired or expected. Thank you for your timely response to this clarification. Requestors name: [ ] Phone # [ ] THIS PHYSICIAN QUERY FORM IS A PERMANENT PART OF THE MEDICAL RECORD [facility] Mar 31, 2021 23:24 ANDREW COLEY MD Apr 02, 2021 14:21
== END 2021-03-28 20:25 | disposition left against medical advice (07) | DRG 208 ==
LOC: EDUNIT# 16:15 → ER 16:16 → ICU 20:09
PROVIDERS: ADMIT Family Medicine; ATTEND Family Medicine
PROC: 5A1945Z Respiratory Ventilation, 24-96 Consecutive Hours (ICD-10-PCS; principal; 2021-03-27)
PROC: 0BH17EZ Insertion of Endotracheal Airway into Trachea, Via Natural or Artificial Opening (ICD-10-PCS; 2021-03-27)
PROC: 009U3ZX Drainage of Spinal Canal, Percutaneous Approach, Diagnostic (ICD-10-PCS; 2021-03-27)
DX: J96.01 Acute respiratory failure with hypoxia (principal); G93.49 Other encephalopathy; Z68.41 Body mass index [BMI] 40.0-44.9, adult; R50.9 Fever, unspecified; X30.XXXA Exposure to excessive natural heat, initial encounter; E66.9 Obesity, unspecified; Z20.822 Contact with and (suspected) exposure to COVID-19
CPT/HCPCS: 0042T; 36415; 51702; 70450; 70496; 70498; 71045; 72125; 80048; 80053; 80306; 80320; 80329; 81000; 82140; 82550; 82805; 82945; 82947; 83605; 83735; 84100; 84145; 84157; 84443; 85025; 85610; 85730; 86141; 86618; 86666; 86668; 86757; 87040; 87070; 87081; 87101; 87205; 87498; 87529; 87636; 89051; 93005; 93041; 94002; 94003; 94799